=== PATIENT | male | born 1965 | race Caucasian/White ===

== ENCOUNTER 2020-05-01 08:04 | Emergency (ER) | payer MEDICAID ==
[~2020-05-01] VITALS: Ht 170.2 cm; Wt 79.4 kg
[2020-05-01 08:15] VITALS: BP_SYST 134
[2020-05-01 09:05] VITALS: BP_SYST 134
== END 2020-05-01 09:05 | disposition home or self-care (01) ==
LOC: SED 08:04
DX: L73.8 Other specified follicular disorders (principal); J45.909 Unspecified asthma, uncomplicated; F17.200 Nicotine dependence, unspecified, uncomplicated; Z71.6 Tobacco abuse counseling
CPT/HCPCS: 99283

== ENCOUNTER 2020-05-04 08:49 | Emergency (ER) | payer MEDICAID ==
[~2020-05-04] VITALS: Ht 170.2 cm; Wt 79.4 kg
[2020-05-04 09:03] VITALS: BP_SYST 115
[2020-05-04] MEDS ORDERED: LIDOCAINE 1% 10 MG/ML, 20 ML MDV INJ ONE (09:30)
[2020-05-04 10:35] VITALS: BP_SYST 115
== END 2020-05-04 10:35 | disposition home or self-care (01) ==
LOC: SED 08:49
DX: N45.4 Abscess of epididymis or testis (principal); J45.909 Unspecified asthma, uncomplicated
CPT/HCPCS: 99283; J2001